=== PATIENT | female | born 1940 | race Caucasian/White ===

== ENCOUNTER 2019-06-27 15:50 | Emergency (ER) | payer MEDICARE ==
[~2019-06-27] VITALS: Ht 162.6 cm; Wt 65.8 kg
--- OUTSIDE RECORDS SUMMARY | 2019-06-27 15:52 | XMS REPORT ---
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 Allergies, Adverse Reactions, Alerts This patient has no known allergies or adverse reactions. Medications This patient has no known medications.
--- OUTSIDE RECORDS SUMMARY | 2019-06-27 15:52 | XMS REPORT | Clinical Summary ---
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 Specialist Name Role Phone Chelsie Mayers MD PCP Allergies Comments Active Allergy Reactions Severity Noted Date Sulfa (Sulfonamide 05/08/2016 Antibiotics) Medications No known medications Active Problems Problem Noted Date Bilateral wrist pain 09/16/2016 Osteoarthritis of knee 05/08/2016 Knee pain 05/08/2016 Hypertensive disorder 05/08/2016 Family History Medical History Relation Name Comments Other Father "Malignant neoplastic disease" Hypertension Mother Relation Name Status Comments Father (Age 77) Mother (Age 88) Social History Date Tobacco Use Types Packs/Day Years Used Quit: 2003 Former Smoker 1 40 Comments: "Has smoked since age" Drinks/Week oz/Week Comments Alcohol Use "Drinks Per Week? 1-3" Yes Sex Assigned at Date Recorded Not on file Industry Job Start Date Occupation Not on file Not on file Not on file Travel End Travel History Travel Start No recent travel history available. 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
[2019-06-27] MEDS ORDERED: TETANUS/DIPHTHERIA TOX ADULT 0.5 ML SYR IM ONE (16:30)
[2019-06-27] MEDS ORDERED: LIDOCAINE HCL 1% LOCAL INJ 20 ML VIAL INJ NR (16:30)
[2019-06-27] MEDS ORDERED: LIDOCAINE 1% W/EPINEPHRINE 20 ML VIAL ONE (16:51)
[2019-06-27] MEDS ORDERED: CEPHALEXIN 500 MG CAP PO NR (17:00)
--- NOTE | 2019-06-27 17:12 | Diagnostic Imaging Report ---
Right hand, 3 views. History: Fall. Findings: The soft tissues are normal. Bone mineralization is normal. There is no evidence of fracture or dislocation. There are no lytic or sclerotic lesions. Degenerative changes are present anteriorly involving the distal interphalangeal joints. IMPRESSION: No acute osseous abnormality. Signed by: Kenn Lantigua on 06/27/2019 5:09 PM
--- NOTE | 2019-06-27 17:39 | Diagnostic Imaging Report ---
Examination: CT head without contrast Clinical Indication: Fall with head injury. Technique: Transaxial noncontrast images from the skull base through the vertex were obtained. Sagittal and coronal reformatted images were done. Dose modulation, iterative reconstruction, and/or weight based adjustment of the mA/kV was utilized to reduce the radiation dose to as low as reasonably achievable. Comparison: None. Findings: Scalp: No abnormalities. Bones: Intact. No fractures. No blastic or lytic lesions. Brain sulci: Appropriate for patient's age. Ventricles: Normal in size and configuration. No hydrocephalus. . Extra-axial space: No abnormalities. Parenchyma: There are subtle patchy areas of low-attenuation within left greater than right periventricular white matter, nonspecific, but could represent microvascular ischemic disease. No masses, hemorrhage, or acute or chronic cortical based vascular insults. Suprasellar region: No abnormalities. Craniocervical junction: The foramen magnum is patent. No Chiari one malformation. Incidental findings: Atherosclerotic calcification of the cavernous and supraclinoid internal carotid arteries. Impression: 1. No acute intracranial finding. 2. Mild chronic microvascular ischemic change. Signed by: Dr. Grace Wilkinson M.D. on 06/27/2019 5:36 PM
[2019-06-27] MEDS ORDERED: BACITRACIN ZINC 0.9GM TP ONE (17:40)
--- NOTE | 2019-06-27 17:42 | Diagnostic Imaging Report ---
Examination: CT Face without Contrast History:Fall with facial injury Comparison studies: None Technique: Axial images were obtained through the maxillofacial region. Coronal and sagittal reconstructions obtained from the axial data. Dose modulation, iterative reconstruction, and/or weight based adjustment of the mA/kV was utilized to reduce the radiation dose to as low as reasonably achievable. Intravenous contrast: None Findings: Soft tissues: Right frontal/supraorbital focal hematoma with laceration. Bones: No acute fracture. Severe bilateral degenerative narrowing of the temporomandibular joints with flattening of the mandibular condyles. Orbits: Globes: Intact Extra or intraconal abnormalities: None. Paranasal sinuses: Clear. Nasal cavity: Patent. No septal deviation. IMPRESSION: 1. Right frontal/supraorbital focal hematoma with laceration. No acute fracture. 2. Severe bilateral temporomandibular joint degenerative change. Signed by: Dr. Grace Wilkinson M.D. on 06/27/2019 5:39 PM
--- NOTE | 2019-06-27 17:45 | Diagnostic Imaging Report ---
Examination: CT CERVICAL SPINE WO CONTRAST HISTORY:Neck injury after fall COMPARISON:None. TECHNIQUE: Multidetector helical axial images were obtained without contrast from the foramen magnum to T1. Coronal and sagittal reformatted images were done. Bone and soft tissue windows were evaluated. Dose modulation, iterative reconstruction, and/or weight based adjustment of the mA/kV was utilized to reduce the radiation dose to as low as reasonably achievable. FINDINGS: Alignment:Normal alignment and lordosis. Vertebrae: Normal height and density. No acute fracture, infection or neoplasm. Disc space heights: Normal height. Caliber of spinal canal: Developmentally normal. Posterior fossa and craniocervical junction: Foramen magnum patent. No Chiari 1 malformation. Soft tissues: Bilateral carotid bifurcation atherosclerotic calcification. Degenerative changes: Diffuse disc osteophyte complexes at C5-C6 and C6-C7 with mild bilateral neural foraminal narrowing. No canal stenosis. IMPRESSION: No acute abnormalities. Signed by: Dr. Grace Wilkinson M.D. on 06/27/2019 5:41 PM
[2019-06-27 18:44] VITALS: BP 149/65
== END 2019-06-27 18:46 | disposition home or self-care (01) ==
LOC: ER 15:50
DX: S01.81XA Laceration without foreign body of other part of head, initial encounter (principal); S00.83XA Contusion of other part of head, initial encounter; M54.2 Cervicalgia; M79.641 Pain in right hand; W01.0XXA Fall on same level from slipping, tripping and stumbling without subsequent striking against object, initial encounter; Y93.01 Activity, walking, marching and hiking; Y92.481 Parking lot as the place of occurrence of the external cause
CPT/HCPCS: 70450; 70486; 72125; 90471; 90714; 99283

== ENCOUNTER 2022-05-18 07:35 | Emergency (ER) | payer OTHER ==
[~2022-05-18] VITALS: Ht 162.6 cm; Wt 65.8 kg
[2022-05-18] MEDS ORDERED: SODIUM CHLORIDE 0.9% 1000ML 1,000 ML IV STA (07:53)
[2022-05-18 08:06] LABS: BASOPHILS % 0.6 % (0.0-1.0); EOSINOPHILS # (AUTO) 0.1 (0.0-0.4); EOSINOPHILS % 2.3 % (0.0-6.0); HEMOGLOBIN 14.8 g/dL (12.0-16.0); LYMPHOCYTES % 16.2 % (18.0-39.1); MEAN CORPUSCULAR HEMOGLOBIN 30.1 pg (28-32); MEAN CORPUSCULAR HGB CONC 32.2 g/dL (31-35); MEAN CORPUSCULAR VOLUME 93.5 fL (81-99); MONOCYTES # (AUTO) 0.4 (0.2-0.8); MONOCYTES % 6.2 % (4.4-11.3); NEUTROPHILS # (AUTO) 4.6 (2.1-6.9); NEUTROPHILS % 74.4 % (38.7-80.0); PLATELET COUNT 256 x10e3/uL (140-360); RED BLOOD COUNT 4.92 x10e6/uL (3.6-5.1); RED CELL DISTRIBUTION WIDTH 12.6 % (11.7-14.4)
[2022-05-18 08:17] LABS: INR 0.87; PROTHROMBIN TIME 12.7 seconds (11.9-14.5)
[2022-05-18 08:18] LABS: PARTIAL THROMBOPLASTIN TIME 24.8 seconds (23.8-35.5)
[2022-05-18 08:31] LABS: ALANINE AMINOTRANSFERASE 13 IU/L (0-55); ALBUMIN 3.8 g/dL (3.5-5.0); ALKALINE PHOSPHATASE 62 IU/L (40-150); ANION GAP 13.5 mmol/L (8-16); BLOOD UREA NITROGEN 9 mg/dL (7-26); BUN/CREATININE RATIO 12 (6-25); CALCIUM 9.6 mg/dL (8.4-10.2); CARBON DIOXIDE 28 mmol/L (22-29); CHLORIDE 105 mmol/L (98-107); CREATINE KINASE 61 IU/L (29-168); CREATININE, SERUM 0.75 mg/dL (0.57-1.11); GLUCOSE 116 mg/dL (74-118); POTASSIUM 4.5 mmol/L (3.5-5.1); SODIUM 142 mmol/L (136-145)
[2022-05-18] MEDS ORDERED: LISINOPRIL5 MG PO (08:31)
[2022-05-18] MEDS ORDERED: OMEPRAZOLE40 MG PO (08:31)
[2022-05-18] MEDS ORDERED: PROZAC40 MG PO (08:31)
[2022-05-18] MEDS ORDERED: OXYBUTYNIN CHLO10 MG PO (08:31)
[2022-05-18] MEDS ORDERED: ATORVASTATIN CA10 MG PO (08:31)
[2022-05-18] MEDS ORDERED: LEVOTHYROXINE75 MC1 PO (08:31)
[2022-05-18 08:32] LABS: COLOR,URINE YELLOW (YELLOW)
[2022-05-18 08:33] LABS: KETONES,URINE NEGATIVE (NEGATIVE); LEUKOCYTE ESTERASE ,URINE SMALL (NEGATIVE); NITRITE,URINE NEGATIVE (NEGATIVE); PROTEIN,URINE DIPSTICK NEGATIVE (NEGATIVE)
[2022-05-18 08:34] LABS: CLARITY,URINE SL CLOUDY (CLEAR); URINE UROBILINOGEN 0.2 mg/dL (0.2 - 1)
[2022-05-18 08:57] LABS: BACTERIA,URINE MODERATE /HPF; EPITHELIAL CELLS,URINE FEW /LPF; TRANSITIONAL EPI CELLS,URINE FEW
== END 2022-05-18 09:34 | disposition home or self-care (01) ==
LOC: ER 07:58
DX: R42 Dizziness and giddiness (principal); N39.0 Urinary tract infection, site not specified; E03.9 Hypothyroidism, unspecified; F32.A Depression, unspecified
CPT/HCPCS: 36415; 70450; 71045; 80053; 81001; 82550; 82553; 83735; 84484; 85025; 85610; 85730; 87086; 93005; 99284; J7030